=== PATIENT | male | born 1970 | race Caucasian/White ===

== ENCOUNTER → 2016-09-28 | Outpatient (CLI) | payer BC | END | disposition home or self-care (01) | LOC: MW.CHFP 15:41 | PROVIDERS: ATTEND Emergency Medicine | DX: E29.1 Testicular hypofunction (principal) | CPT/HCPCS: 36415; 84402; 84403 ==

== ENCOUNTER 2020-10-16 09:47 | Day surgery (SDC) | payer OTHER ==
[~2020-10-16 09:47] MED LIST: Lactated Ringers 1,000 ML IV SCH
--- NOTE | 2020-10-16 10:51 | PCM.PREANE ---
Preanesthetic Assessment - Anesthesia/Transfusion/Family Hx Anesthesia History: Prior Anesthesia Without Reaction Other Type of Anesthesia Reaction Comment: rxn to Versed- "skin was crawling" Transfusion History: No Prior Transfusion(s) - Physical Assessment NPO Status Date: 10/16/20 NPO Status Time: 00:05 Vital Signs: Last Vital Signs Temp 36.7 C 10/16/20 10:00 Pulse 84 10/16/20 10:00 Resp 16 10/16/20 10:00 BP 154/93 H 10/16/20 10:00 Pulse Ox 96 10/16/20 10:00 Height: 1.85 m Weight: 119.748 kg ASA Class: 2 - Allergies Allergies/Adverse Reactions: Allergies Allergy/AdvReac Type Severity Reaction Status Date / Time midazolam [From Versed] Allergy Other Verified 10/14/20 10:44 - Acknowledgements Anesthesia Type Planned: General Anesthesia Pt an Appropriate Candidate for the Planned Anesthesia: Yes Alternatives and Risks of Anesthesia Discussed w Pt/Guardian: Yes Pt/Guardian Understands and Agrees with Anesthesia Plan: Yes PreAnesthesia Questionnaire HEENT History: Reports: Glaucoma, Other (See Below) Other HEENT History: wears glasses/contacts Cardiovascular History: Reports: Hypertension Gastrointestinal History: Reports: GERD, Hiatal Hernia Genitourinary History: Reports: None Neurological History: Reports: Concussion, MS, Other (See Below) Other Neuro History: hx of motion sickness Endocrine/Metabolic History: Reports: Obesity/BMI 30+, Other (See Below) Other Endocrine/Metabolic History: pre-diabetic Immunologic History: Reports: Immunosuppression - Past Surgical History Head Surgeries/Procedures: Reports: None HEENT Surgical History: Reports: Tonsillectomy Musculoskeletal Surgical History: Reports: Other (See Below) Other Musculoskeletal Surgeries/Procedures:: excision of lipoma - SUBSTANCE USE Tobacco Use Status *Q: Never Tobacco User Recreational Drug Use History: Yes - HOME MEDS Home Medications: Home Meds Aspirin [Halfprin] 162 mg PO DAILY 04/19/14 [History] Cholecalciferol (Vitamin D3) [Vitamin D] 2,000 unit PO DAILY 04/19/14 [History] Multivitamin [Multivitamins] 1 each PO DAILY 04/19/14 [History] Zolpidem [Ambien] 10 mg PO BEDTIME 04/19/14 [History] Brimonidine Tartrate [Brimonidine Tartrate 0.2% Ophth Soln] 1 drop EYEBOTH BID 10/14/20 [History] ClomiPHENE [ClomiPHENE Citrate] 50 mg PO BEDTIME 10/14/20 [History] Dorzolamide HCl/Timolol Maleat [Dorzolamide-Timolol Eye Drops] 1 drop EYEBOTH BID 10/14/20 [History] Escitalopram Oxalate 10 mg PO ASDIRECTED PRN 10/14/20 [History] Fingolimod [Gilenya] 0.5 mg PO BEDTIME 10/14/20 [History] LORazepam [Ativan] 0.5 mg PO DAILY PRN 10/14/20 [History] Latanoprost/Pf [Latanoprost 0.005% Eye Drop] 1 drop EYEBOTH DAILY 10/14/20 [History] Sildenafil Citrate 20 - 30 mg PO ASDIRECTED PRN 10/14/20 [History] Terazosin HCl [Terazosin] 2 mg PO BEDTIME 10/14/20 [History] Tolterodine Tartrate [Tolterodine Tartrate ER] 4 mg PO BEDTIME 10/14/20 [History] - CURRENT (IN HOUSE) MEDS Current Meds: Current Medications Lactated Ringer's (Ringers, Lactated) 1,000 mls @ 125 mls/hr IV ASDIRECTED MYLES Last Admin: 10/16/20 10:16 Dose: 125 mls/hr Documented by:
[2020-10-16] MEDS ORDERED: Lidocaine 2% 5 ML SDV ONE (11:02)
[2020-10-16] MEDS ORDERED: Glycopyrrolate 0.2 MG/ML SDV ONE (11:02)
[2020-10-16] MEDS ORDERED: Propofol 200 MG/20 ML SDV ONE ×3 (11:03→11:04)
[2020-10-16] MEDS ORDERED: Midazolam 1 MG/ML 2 ML SDV ONE (12:32)
--- NOTE | 2020-10-16 13:26 | PCM.OPNOTE ---
- General Post-Op/Procedure Note Date of Surgery/Procedure: 10/16/20 Operative Procedure(s): EGD with biopsies. Colonoscopy Findings: Hiatal hernia Diverticulosis Dictation number #[id number] Pre Op Diagnosis: Anemia Post-Op Diagnosis: HIatal hernia. Diverticulosis Primary Surgeon: Aaron Edwards Pathology: Biopsies from the EGD Complications: None Condition: Good
--- NOTE | 2020-10-16 13:29 | PCM.POSTAN ---
POST ANESTHESIA ASSESSMENT - MENTAL STATUS Mental Status: Alert, Oriented - VITAL SIGNS Vital Signs: Last Vital Signs Temp 36.7 C 10/16/20 10:00 Pulse 84 10/16/20 10:00 Resp 16 10/16/20 10:00 BP 154/93 H 10/16/20 10:00 Pulse Ox 96 10/16/20 10:00 - RESPIRATORY Respiratory Status: Respiratory Rate WNL, Airway Patent, O2 Saturation Stable - CARDIOVASCULAR CV Status: Pulse Rate WNL, Blood Pressure Stable - GASTROINTESTINAL GI Status: No Symptoms - POST OP HYDRATION Hydration Status: Adequate & Stable
--- NOTE | 2020-10-16 13:49 | PCM48HPAN ---
Post Anesthesia Note - EVALUATION WITHIN 48HRS OF ANESTHETIC Vital Signs in Normal Range: Yes Patient Participated in Evaluation: Yes Respiratory Function Stable: Yes Airway Patent: Yes Cardiovascular Function Stable: Yes Hydration Status Stable: Yes Pain Control Satisfactory: Yes Nausea and Vomiting Control Satisfactory: Yes Mental Status Recovered: Yes Vital Signs: Last Vital Signs Temp 36.7 C 10/16/20 10:00 Pulse 73 10/16/20 13:32 Resp 13 10/16/20 13:32 BP 125/72 10/16/20 13:32 Pulse Ox 97 10/16/20 13:32
--- NOTE | 2020-10-17 08:46 | OR ---
SURGEON: CYNTHIA CAMPOS MD DATE OF PROCEDURE: 10/16/2020 PREOPERATIVE DIAGNOSES: 1. Anemia. 2. Gastroesophageal reflux disease. POSTOPERATIVE DIAGNOSES: 1. Hiatal hernia. 2. Diverticulosis. PROCEDURE PERFORMED: 1. Colonoscopy. 2. Esophagogastroduodenoscopy with biopsies. PRIMARY SURGEON: Cynthia Campos MD ANESTHESIA: With anesthesiologist. BOWEL PREP: Very good. LIMITATIONS: None. REASON FOR PROCEDURE: The patient is a pleasant 49-year-old gentleman. He has never had a colonoscopy before. He denies any blood in the stool. He denies any family history of colon cancer. He does have a history of some anemia. The patient denies any heartburn, although he takes Nexium. With the Nexium, this seemed to take care of his heartburn issues. He has been told in the past he has a hernia. PROCEDURE DETAILS: Physical exam was performed. The major risks and benefits associated with the procedure were explained to the patient in detail. The patient verbalized understanding and agreement of the same. The patient was then connected to appropriate monitoring device and IV started. EKG, pulse, pulse oximetry, blood pressure, and capnography were monitored throughout the procedure. Continuous oxygen and sedation were provided by the anesthesiologist. Sedation was began. After adequate sedation was achieved, an upper endoscope was advanced under direct visualization without any difficulty in the upper GI tract. Anatomy and mucosa of esophagus, GE junction, stomach, and at least to the second part of the duodenum were all inspected. Duodenum appeared normal. Scope was brought into the stomach. In the pylorus and antrum, the patient had a small amount of buildup of mucosal tissue. This was removed with a cold biopsy forceps. Did not quite look like a polyp, potentially was beginning of a small one. I also did biopsies to check for H pylori. Both retro and antegrade views of the stomach were done. The patient did have a moderate-size hiatal hernia. The mucosa in the stomach had sheen a little duller than typical. I did do several random biopsies throughout the stomach. Scope was brought up through the hiatal hernia. The patient again had what looked like potentially a small polyp right in the hiatal hernia. This was removed with cold biopsy. GE junction was inspected. GE junction was approximately 37 cm from the incisor. The GE junction appeared intact with a good squamocolumnar line. The hiatal hernia appeared to be about 3 cm in size. Scope was brought back into the stomach. Stomach was deinsufflated. Scope was brought back through the esophagus. Esophagus was normal. Scope was removed and this part of the procedure was terminated. Now, gloves and scopes were changed. The patient was placed in left lateral decubitus position. Rectal exam was done. No rectal masses or polyps were felt. Now, a well-lubricated Olympus colonoscope was entered in the rectum and advanced under direct visualization to the level of the cecum. Cecum was identified by both visual and anatomic landmarks. Photographs were taken of the cecal cap. Although it did not appear on pictures afterward, pictures were also taken of the ileocecal valve. Scope was then slowly withdrawn in somewhat circular fashion looking at the color, texture, anatomy, and integrity of the mucosa from the cecum to the anal canal. The patient did have some liquid stool which was suctioned and irrigated out for a very good look at the mucosa. The patient also had several stool balls. These were all mobile and did not appear to be attached to mucosa. The patient did have several diverticulosis throughout the sigmoid colon. Scope was then retroflexed in the rectum. Scope was completely removed and the procedure was terminated. ENDOSCOPIC DIAGNOSES: 1. Hiatal hernia. 2. Diverticulosis. 3. Potentially some small polyps in the stomach. RECOMMENDATIONS: Followup colonoscopy will be in 10 years, sooner if he develops signs and symptoms such as change in bowel habits or blood in his stool. The patient will follow up in the clinic to go over his EGD. SENG / ENZO /[id number]
== END 2020-10-16 14:46 | disposition home or self-care (01) ==
LOC: MW.SDS 09:47
PROVIDERS: ATTEND Surgery
DX: K57.30 Diverticulosis of large intestine without perforation or abscess without bleeding (principal); K44.9 Diaphragmatic hernia without obstruction or gangrene; D64.9 Anemia, unspecified; G35 Multiple sclerosis; I10 Essential (primary) hypertension; E66.9 Obesity, unspecified; Z68.34 Body mass index [BMI] 34.0-34.9, adult; Z79.82 Long term (current) use of aspirin; Z79.899 Other long term (current) drug therapy; Z98.890 Other specified postprocedural states
CPT/HCPCS: 43239; 45378; 88305; 88312; J2250; J2704; J3490; J7120; 00813

== ENCOUNTER 2022-10-20 12:17 | Emergency (ER) | payer OTHER | END 2022-10-20 14:20 | disposition home or self-care (01) | LOC: MW.ED 12:17 | DX: J40 Bronchitis, not specified as acute or chronic (principal); I10 Essential (primary) hypertension; E66.9 Obesity, unspecified; Z68.33 Body mass index [BMI] 33.0-33.9, adult; Z88.8 Allergy status to other drugs, medicaments and biological substances; Z79.82 Long term (current) use of aspirin; Z79.899 Other long term (current) drug therapy | CPT/HCPCS: 71046; 71046-26; 99283 ==

== ENCOUNTER 2023-02-04 14:56 | Emergency (ER) | payer OTHER ==
[2023-02-04] MEDS ORDERED: Ketorolac 60 MG/2 ML SDV IM ONE (17:44)
== END 2023-02-04 18:51 | disposition home or self-care (01) ==
LOC: MW.ED 14:56
DX: M54.9 Dorsalgia, unspecified (principal); M25.551 Pain in right hip; I10 Essential (primary) hypertension; E66.9 Obesity, unspecified; Z68.32 Body mass index [BMI] 32.0-32.9, adult; Z88.4 Allergy status to anesthetic agent; Z79.899 Other long term (current) drug therapy
CPT/HCPCS: 96372; 99283; J1885

== ENCOUNTER 2023-12-04 12:34 | Emergency (ER) | payer OTHER | END 2023-12-04 13:18 | disposition home or self-care (01) | LOC: MW.ED 12:34 | DX: R51.9 Headache, unspecified (principal); R11.0 Nausea; I10 Essential (primary) hypertension; K21.9 Gastro-esophageal reflux disease without esophagitis; Z88.4 Allergy status to anesthetic agent; Z79.82 Long term (current) use of aspirin; Z79.899 Other long term (current) drug therapy | CPT/HCPCS: 82375; 99282; 99284 ==

== ENCOUNTER 2025-03-25 04:14 | Emergency (ER) | payer OTHER | END 2025-03-25 06:00 | disposition home or self-care (01) | LOC: MW.ED 04:14 | DX: S01.312A Laceration without foreign body of left ear, initial encounter (principal); I10 Essential (primary) hypertension; E66.9 Obesity, unspecified; Z79.82 Long term (current) use of aspirin; Z79.899 Other long term (current) drug therapy; Z88.8 Allergy status to other drugs, medicaments and biological substances; Y09 Assault by unspecified means | CPT/HCPCS: 70450; 70450-26; 70486; 70486-26; 99284 ==